=== PATIENT | male | born 1960 | race Caucasian/White ===

== ENCOUNTER 2019-06-16 19:54 | Emergency (ER) | payer MEDICAID ==
[~2019-06-16] VITALS: Ht 170.2 cm; Wt 96.2 kg
[2019-06-16] MEDS ORDERED: LIDOCAINE VISCUS 2% 15 ML UDC MM ONE (20:30)
[2019-06-16] MEDS ORDERED: FAMOTIDINE. 20 MG/2 ML VIAL IV ONE ×2 (20:30→20:38)
[2019-06-16] MEDS ORDERED: MAG HYDROX/AL HYDROX/SIMETH 30 ML LIQUID UDC PO ONE (20:30)
--- NOTE | 2019-06-16 20:30 | NUR ---
Patient is AOx4, speaking in complete sentences, speech is clear. Patient is able to follow /comprehend directions. Gait is stable. No cardiovascular distress noted. Rate and rhythm are regular. No CP. No respiratory distress noted. Respirations even & unlabored with symmetrical chest rise. No adventitious sounds noted. C/O ABD PAIN AT 5/10 Patient denies Fever/Chills. No recent travel. No pertinent medical history/NKDA. - ETOH/ -recreational drug use/ -SMOKING. LBM was yesterday. Patient is continent of bowel and bladder function. AWAITING CT
[2019-06-16] MEDS ORDERED: LIDOCAINE VISCUS 2% 15 ML UDC ONE (20:38)
[2019-06-16] MEDS ORDERED: MAG HYDROX/AL HYDROX/SIMETH 30 ML LIQUID UDC ONE (20:38)
[2019-06-16 20:53] LABS: EOSINOPHILS # (AUTO) 0.2 K/uL (0.0-0.7); EOSINOPHILS % (AUTO) 3.4 % (0.0-7.0); HEMATOCRIT 44.3 % (36.7-47.1); HEMOGLOBIN 15.1 g/dL (12.5-16.3); LYMPHOCYTES # (AUTO) 1.7 K/uL (20.0-40.0); LYMPHOCYTES % (AUTO) 37.4 % (20.5-51.5); MEAN CORPUSCULAR HEMOGLOBIN 27.9 uug (23.8-33.4); MEAN CORPUSCULAR HGB CONC 34 g/dL (32.5-36.3); MEAN CORPUSCULAR VOLUME 81.8 fL (73.0-96.2); MONOCYTES # (AUTO) 0.6 K/uL (2.0-10.0); MONOCYTES % (AUTO) 12.2 % (0.0-11.0); NEUTROPHILS # (AUTO) 2.1 K/uL (1.8-8.9); PLATELET COUNT (AUTO) 214 K/uL (152-348); RED BLOOD CELL COUNT(AUTO) 5.42 MIL/uL (4.06-5.63); WHITE BLOOD COUNT (AUTO) 4.7 K/uL (3.6-10.2)
[2019-06-16 20:58] LABS: *BLOOD, URINE NEGATIVE (NEGATIVE); *CLARITY,URINE CLEAR (CLEAR); *COLOR,URINE YELLOW (YELLOW); *KETONES,URINE TRACE (NEGATIVE); LEUKOCYTE ESTERASE ,URINE NEGATIVE (NEGATIVE); NITRITE, URINE NEGATIVE (NEGATIVE); UGLUCOSE NEGATIVE (NEGATIVE)
[2019-06-16 20:59] LABS: BILIRUBIN,DIRECT 0.2 mg/dL (0.0-0.2); BILIRUBIN,TOTAL 2.1 mg/dL (0.2-1.0); CREATININE 1.2 mg/dL (0.6-1.3); POTASSIUM 3.7 mmol/L (3.5-5.1); TOTAL PROTEIN, SERUM 7.1 g/dL (6.4-8.2)
[2019-06-16 21:06] LABS: *BILIRUBIN,URIN 1+ (NEGATIVE)
[2019-06-16 21:09] LABS: BACTERIA,URINE NONE SEEN /HPF (NONE SEEN); RBC,URINE 0-3 /HPF (0-3); SQUAMOUS EPITHELIAL CELL,UR FEW /HPF (NONE SEEN); WBC,URINE 0-3 /HPF (0-3)
[2019-06-16] MEDS ORDERED: SWABABLE VALVE TRANSFER SET EA MC ONE (21:14)
[2019-06-16] MEDS ORDERED: IOHEXOL 300MG/ML 100 ML INFUS..BTL ONE (21:14)
[2019-06-16] MEDS ORDERED: IV NORMAL SALINE 250 ML IV ONE (21:14)
--- NOTE | 2019-06-16 21:31 | NUR ---
BROUGHT DOWN TO CT ACCOMPANIED BY CARSON VIA RUDDY PATE RA
--- NOTE | 2019-06-16 21:52 | NUR ---
PT BACK FROM CT VIA JEFFERSONREDUAR ACCOMPANIED BY WINDING INSPECTOR HERLINDA RA
--- NOTE | 2019-06-16 23:02 | NUR ---
Patient discharged to home in stable conditon. Written and verbal after care instructions given. Patient verbalizes understanding of instructions. ambulatory w/ stable gait all belongings w/ pt iv dc, dressed
[2019-06-16 23:05] VITALS: BP 110/83
== END 2019-06-16 23:08 | disposition home or self-care (01) ==
LOC: ER 19:56
DX: R10.13 Epigastric pain (principal); E78.5 Hyperlipidemia, unspecified; Z79.82 Long term (current) use of aspirin; Z79.899 Other long term (current) drug therapy
CPT/HCPCS: 36415; 74177; 80048; 80076; 81000; 81001; 83690; 85025; 96374; 99285; J3490; Q9967; A4663; J7050

== ENCOUNTER 2022-03-18 17:11 | Emergency (ER) | payer MEDICAID ==
[~2022-03-18] VITALS: Ht 170.2 cm; Wt 99.8 kg
[~2022-03-18 17:11] MED LIST: AMLO-212 PO; ASPI81TA31 PO; ATOR20TA27 PO; BISO1TAB PO; CHOL500050 PO
[2022-03-18] MEDS ORDERED: COLCHICINE 0.6 MG TABLET PO ONE (17:30)
[2022-03-18] MEDS ORDERED: ALLO100T56 PO (17:36)
[2022-03-18] MEDS ORDERED: COLC0.6C3 PO (17:36)
[2022-03-18] MEDS ORDERED: COLCHICINE 0.6 MG TABLET ONE (17:37)
--- NOTE | 2022-03-18 17:58 | NUR ---
Patient discharged to home in stable condition. Written and verbal after care instructions given. Patient verbalizes understanding of instructions. Stressed follow up or return to ER for worsening s/s.
== END 2022-03-18 18:22 | disposition home or self-care (01) ==
LOC: ER 17:11
DX: M10.9 Gout, unspecified (principal); E78.5 Hyperlipidemia, unspecified; R03.0 Elevated blood-pressure reading, without diagnosis of hypertension
CPT/HCPCS: 73630; A4663

== ENCOUNTER 2022-04-11 13:10 | Emergency (ER) | payer MEDICAID ==
[~2022-04-11] VITALS: Ht 175.3 cm; Wt 86.2 kg
[~2022-04-11 13:10] MED LIST changes: +ALLO100T56 PO; +COLC0.6C3 PO
--- NOTE | 2022-04-11 13:21 | NUR ---
No ER bed available, placed pt in the hallway.
[2022-04-11] MEDS ORDERED: COLC0.6C3 PO (13:42)
[2022-04-11] MEDS ORDERED: ALLO100T PO ×2 (13:42→13:47)
[2022-04-11] MEDS ORDERED: COLCHICINE 0.6 MG TABLET PO ONE (13:45)
[2022-04-11] MEDS ORDERED: COLCHICINE 0.6 MG TABLET ONE (13:51)
[2022-04-11 14:05] VITALS: BP 140/80
== END 2022-04-11 14:06 | disposition home or self-care (01) ==
LOC: ER 13:12
DX: M10.9 Gout, unspecified (principal); E78.5 Hyperlipidemia, unspecified; Z79.899 Other long term (current) drug therapy
CPT/HCPCS: A4663